=== PATIENT | male | born 1995 | race Caucasian/White ===

== ENCOUNTER 2023-09-14 01:59 | Emergency (ER) | payer MEDICAID ==
[~2023-09-14] VITALS: Ht 170.2 cm; Wt 71.0 kg
[2023-09-14 02:02] VITALS: O2SAT 98
[2023-09-14] MEDS ORDERED: MORPHINE SULFATE 4 MG/ML CPJ (NOT FOR IM USE) IV STA (02:40)
[2023-09-14] MEDS ORDERED: ONDANSETRON HCL 4MG/2ML INJ IV STA (02:40)
[2023-09-14] MEDS ORDERED: SODIUM CHLORIDE 0.9% 1,000 ML IV ONE (02:45)
[2023-09-14] MEDS ORDERED: ACETAMINOPHEN 325MG TABLET PO ONE (03:00)
[2023-09-14] MEDS ORDERED: MORPHINE SULFATE 10 MG/ML CPJ IM ONE (03:00)
[2023-09-14] MEDS ORDERED: ONDANSETRON 4MG ODT PO ONE (03:00)
[2023-09-14] MEDS ORDERED: HYDR-4001 MT (03:51)
[2023-09-14] MEDS ORDERED: NAPR-1074 MT (03:51)
[2023-09-14 10:34] VITALS: BP 125/82; PULSE 78; RESP 20; TEMP 98
== END 2023-09-14 10:35 | disposition home or self-care (01) ==
LOC: ER 01:59
DX: G89.18 Other acute postprocedural pain (principal); M54.50 Low back pain, unspecified
CPT/HCPCS: 99283; 71045; 96372; Q0162; J2270; J7030